=== PATIENT | male | born 1945 | race Caucasian/White ===

== ENCOUNTER 2020-09-23 09:08 | Emergency (ER) | payer OTHER, MEDICARE ==
[~2020-09-23] VITALS: Ht 175.3 cm; Wt 60.0 kg
[~2020-09-23 09:08] MED LIST: AMOXICILLIN/CL875 MG OR; ASPIRIN EC325 MG PO; ATENOLOL50 MG PO; FLEXERIL PO; LISINOPRIL20 MG PO; SIMVASTATIN40 MG PO; ULTRAM50 M1 PO
[2020-09-23] MEDS ORDERED: ANUCORT-HC25 MG RE ×2 (09:58→11:28)
[2020-09-23] MEDS ORDERED: HYDROCORTISONE12 PR ×2 (09:58→11:28)
[2020-09-23] MEDS ORDERED: METFORMIN HCL500 M1 PO (10:26)
[2020-09-23 10:27] VITALS: BP 169/77
== END 2020-09-23 10:27 | disposition home or self-care (01) | DRG 395 ==
LOC: ED 09:08
DX: K64.4 Residual hemorrhoidal skin tags (principal); I10 Essential (primary) hypertension; E78.5 Hyperlipidemia, unspecified